=== PATIENT | female | born 1970 | race Caucasian/White ===

== ENCOUNTER → 2019-01-03 | Outpatient (CLI) | payer OTHER ==
[~2019-01-03] MED LIST: AZEL1SPR3 NARES; CHOL50002 PO; CLON0.5T17 PO; COMBAER6 INH; DYMI137S; LASI40TA9 PO; LORA-622 PO; OMEP40CA97 PO; PERCOCET PO; PHEN15CA PO; ULTR5TAB PO
--- NOTE | 2019-01-04 12:24 | REP ---
PET/CT: HISTORY: Solitary pulmonary nodule. COMPARISONS: There is a report of a chest CT study from [facility] dated December 15, 2018. TECHNIQUE: 60 minutes following the intravenous injection of a 9.15 mCi dose of F-18 FDG, three-dimensional PET scintigraphy is acquired from the skull base to the proximal thighs. Triplanar noncontrast CT scanning is acquired through the same anatomic range for attenuation correction, and image registration with scan parameters optimized to minimize radiation exposure to the patient. PET scintigraphy and CT datasets were fused and displayed on a workstation with multiplanar and projection display capability. PET/CT FINDINGS: CT images from today's study demonstrate a 1.9 cm partly solid nodular density in the right lower lobe which is felt to correspond with the outside CT report. This demonstrates mildly hypermetabolic FDG accumulation, maximum standard uptake value is 3.2. There is no other abnormal hypermetabolic uptake in the chest. Head and neck soft tissues are remarkable only for normal variant skeletal muscle uptake. In the abdomen and pelvis, normal hepatic, splenic, gastrointestinal, and genitourinary FDG accumulations seen. No abnormal hypermetabolic uptake is seen in the abdomen or pelvis. The scan is otherwise unremarkable. IMPRESSION: Partly solid 1.9 cm nodule in the right lower lobe shows mildly hypermetabolic uptake. Malignancy cannot be excluded. Suggest histologic sampling. Electronically Signed by Baltazar Lr MD 01/04/2019 04:34 P
== END ==
LOC: M PLARAD 08:09
PROVIDERS: ATTEND Internal Medicine
DX: R91.1 Solitary pulmonary nodule (principal)
CPT/HCPCS: 78815; A9552

== ENCOUNTER → 2019-01-26 | Outpatient (CLI) | payer OTHER ==
--- NOTE | 2019-01-27 06:01 | REP ---
Clinical: Lung cancer. Technique: Axial noncontrast images from the thoracic inlet to the upper abdomen with coronal and sagittal re-formations Comparison: 12/15/2018. Findings: Nodular complex in the right lower lobe measuring approximately 2.3 cm maximal diameter including multiple small soft tissue nodules measuring up to approximately 6 mm each as well as focal area of non solid nodule measuring 1.2 cm and small cystic component measuring approximately 1.3 cm. Remainder of lung eller are clear and without further nodule, consolidation, effusion, or pneumothorax. No significant adenopathy is appreciated. Tracheobronchial tree is patent. Mediastinum demonstrates mild atherosclerotic changes to the thoracic aorta and coronary arteries without aortic aneurysm or cardiomegaly. No pericardial effusion. Surrounding musculoskeletal structures are intact without focal osseous abnormality. Limited upper abdomen demonstrates a low-density right adrenal lesions consistent with benign adrenal adenomas up to 2 cm and evidence of prior cholecystectomy. Impression: 1. Focal complex area in the right lower lobe as described above containing small nodules, cyst, and non solid density remains stable. 2. No further acute mediastinal or pleuroparenchymal process. 3. Right adrenal adenomas. Electronically Signed by Otilio Dominguez MD 01/27/2019 05:53 A
== END ==
LOC: M RAD 13:41
PROVIDERS: ATTEND Internal Medicine Pulmonary Disease
DX: R91.8 Other nonspecific abnormal finding of lung field (principal)

== ENCOUNTER → 2019-02-16 | Outpatient (CLI) | payer OTHER ==
[~2019-02-16] MED LIST changes: +ACETAMINOPHEN 325 MG TAB As Ordered ONE; +LIDOCAINE 1% MDV 20ML VIAL As Ordered ONE
--- NOTE | 2019-02-16 13:39 | REP ---
POSTBIOPSY CHEST: Single film of the chest is performed status post right lung biopsy. There is a small right apical pneumothorax. There are atelectatic changes bilaterally on this expiratory view. The cardiomediastinal silhouette appears unremarkable. IMPRESSION: Small right apical pneumothorax status post right lung biopsy. Followup radiograph will be performed in 2 hours. Electronically Signed by Nelson Alejo MD 02/17/2019 09:24 A
[2019-02-16 14:10] VITALS: BP 116/69
--- NOTE | 2019-02-16 14:19 | REP ---
CHEST, SINGLE VIEW: Single view of the chest is performed status post right lung biopsy. There is again a small right apical pneumothorax. This has remained stable. The remainder of the study is unchanged. Electronically Signed by Nelson Alejo MD 02/21/2019 09:02 A
--- NOTE | 2019-02-17 09:16 | REP ---
CT-GUIDED RIGHT LOWER LOBE LUNG BIOPSY The procedure was performed under the direct supervision of Dr. Aeljo. The patient has a history of a poorly solid 1.9 cm nodule in the right lower lobe which was mildly hypermetabolic on a previous PET scan dated 01/03/2019. The risks and benefits of the procedure were explained to the patient and informed consent was obtained. The right lower lobe lung nodule was localized using CT guidance. The skin was prepped and draped in a sterile fashion. 1% lidocaine was used as a local anesthetic. Using CT guidance 19/20 gauge coaxial needle biopsy system was inserted and advanced into the nodule. Four core biopsy samples were obtained and sent to the lab. The patient did develop a small right pneumothorax. The patient's O2 saturations were 100% on room air. The patient complained of pain at approximately six or seven out of 10. The patient was placed on 2 liters of O2 via nasal cannula. Chest x-ray performed immediately after the procedure demonstrates a small right apical pneumothorax. Chest x-ray performed 2 hours later shows no change in the size of the pneumothorax. The patient's vital signs were stable and her pain had lessened. The patient was then discharged home. Electronically Signed by ABBIE Renteria 02/16/2019 02:53 P Electronically Signed by Nelson Alejo MD 02/17/2019 09:07 A
== END ==
LOC: M IRPRO 10:49
PROVIDERS: ATTEND Internal Medicine Pulmonary Disease
DX: C34.31 Malignant neoplasm of lower lobe, right bronchus or lung (principal)

== ENCOUNTER → 2019-03-02 | Outpatient (CLI) | payer OTHER ==
[~2019-03-02] MED LIST changes: -ACETAMINOPHEN 325 MG TAB As Ordered ONE; -AZEL1SPR3 NARES; -LASI40TA9 PO; -LIDOCAINE 1% MDV 20ML VIAL As Ordered ONE; -OMEP40CA97 PO; -PERCOCET PO; -ULTR5TAB PO
== END ==
LOC: M SMT 08:59
PROVIDERS: ATTEND Internal Medicine Pulmonary Disease
DX: C34.31 Malignant neoplasm of lower lobe, right bronchus or lung (principal)

== ENCOUNTER → 2019-03-16 | Outpatient (CLI) | payer OTHER ==
[~2019-03-16] MED LIST changes: +AZEL1SPR3 NARES; +LASI40TA9 PO; +OMEP40CA97 PO; +PERCOCET PO; +ULTR5TAB PO
[2019-03-16 13:54] LABS: HEMATOCRIT 45.8 % (36.0-47.0); HEMOGLOBIN 14.7 g/dl (12.0-15.5); MEAN CORPUSCULAR HEMOGLOBIN 30.2 pg (27.0-33.0); MEAN CORPUSCULAR HGB CONC 32.1 g/dl (32.0-36.5); PLATELET COUNT, AUTOMATED 238 10^3/uL (150-450); RED BLOOD COUNT 4.87 10^6/uL (4.00-5.40); WHITE BLOOD COUNT 10.5 10^3/uL (4.0-10.0)
[2019-03-16 13:59] LABS: INR 0.98; PROTHROMBIN TIME 12.7 SECONDS (11.8-14.0)
[2019-03-16 14:00] LABS: PARTIAL THROMBOPLASTIN TIME 28.6 SECONDS (25.0-38.4)
[2019-03-16 14:01] LABS: ABG BASE EXCESS -0.9 (-2.0-2.0); ABG HCO3 23.2 MEQ/L (22.0-26.0); ABG O2 SATURATION 94.5 % (95.0-99.0); ABG PARTIAL PRESSURE CO2 36.6 mmHg (35.0-45.0); ABG PARTIAL PRESSURE O2 68.8 mmHg (75.0-100.0); ABG STANDARD HCO3 23.7 MEQ/L (22.0-26.0); ABG TOTAL CO2 24.3 MEQ/L (22.0-29.0); ABG pH (ARTERIAL) 7.419 UNITS (7.350-7.450)
[2019-03-16 14:15] LABS: BLOOD UREA NITROGEN 11 MG/DL (7-18); CALCIUM LEVEL 9.8 MG/DL (8.5-10.1); CARBON DIOXIDE LEVEL 30 MEQ/L (21-32); CHLORIDE LEVEL 106 MEQ/L (98-107); GLOMERULAR FILTRATION RATE > 60.0 (>58); GLUCOSE, FASTING 87 MG/DL (70-100); POTASSIUM SERUM 4.4 MEQ/L (3.5-5.1); SODIUM LEVEL 139 MEQ/L (136-145)
[2019-03-16 14:47] LABS: APPEARANCE, URINE CLEAR (CLEAR); BACTERIA, URINE AUTO NEGATIVE (NEGATIVE); BILIRUBIN, URINE AUTO NEGATIVE (NEGATIVE); BLOOD, URINE BLOOD NEGATIVE (NEGATIVE); COLOR, URINE STRAW (YELLOW); GLUCOSE, URINE (UA) AUTO NEGATIVE (NEGATIVE); KETONE, URINE AUTO NEGATIVE (NEGATIVE); LEUKOCYTE ESTERASE, URINE AUTO NEGATIVE (NEGATIVE); NITRITE, URINE AUTO NEGATIVE (NEGATIVE); PROTEIN, URINE AUTO NEGATIVE (NEGATIVE); RBC, URINE AUTO 1 /HPF (0-3); SPECIFIC GRAVITY URINE AUTO 1.006 (1.002-1.035); SQUAMOUS EPITHELIAL CELL UR AU 0 /HPF (0-6); UROBILINOGEN, URINE AUTO 0.2 mg/dL (0.0-2.0); WBC, URINE AUTO 0 /HPF (0-3)
--- NOTE | 2019-03-16 14:48 | REP ---
PA and lateral chest: Comparisons are the outside PA and lateral chest of 01/28/[address] dated 01/26/2019. By CT the patient has a known right lower lobe lung nodular lesion. This right lower lobe lung nodule is not identified on PA and lateral plain films today or on the prior plain film study. There are abdominal right upper quadrant surgical clips, unchanged. The lung eller are clear. The cardiac size is normal. The ami, mediastinum, and skeletal structures are unremarkable. Impression: Negative PA and lateral chest. There is no interval change from the prior plain film study. Electronically Signed by Nelson Romero MD 03/16/2019 02:39 P
--- NOTE | 2019-03-16 15:34 | ECGEPIP ---
[facility] Test Date: 2019-03-16 Pat Name: LUZMA BATISTA Department: Room: - Gender: Female Acquisition Advisor: ELISABETH : [id number] Requested By: Adriel Sierra Order Number: [id number] Reading MD: Jesus Cox Measurements Intervals [place] Rate: 70 P: 11 IA: 162 QRS: 28 QRSD: 85 T: 32 QT: 387 QTc: 419 Interpretive Statements Normal sinus rhythm Normal EKG Comparison tracing not on file Electronically Signed on 03-16-2019 15:34:20 EST by Jesus Cox
== END ==
LOC: M ADMPAT 13:12
PROVIDERS: ATTEND Thoracic Surgery (Cardiothoracic Vascular Surgery)
DX: Z01.818 Encounter for other preprocedural examination (principal); C34.91 Malignant neoplasm of unspecified part of right bronchus or lung

== ENCOUNTER 2019-03-23 06:53 | Inpatient (IN) | payer OTHER ==
[2019-03-23] VITALS (18 sets, daily range): BP systolic 94–126; BP diastolic 43–62
[~2019-03-23] VITALS: Ht 162.6 cm; Wt 115.2 kg
[~2019-03-23 06:53] MED LIST changes: -LASI40TA9 PO; +LR 1,000 ML IV ONE; +MUPIROCIN 2% OINT 22 GM TUBE TOP ONE; -PERCOCET PO; +VANCOMYCIN HCL 1,000 MG, VIAL MATE ADAPTER 1 EACH in D5W 250 ML IV ONE
[2019-03-23] MEDS ORDERED: fentaNYL 100 MCG/2 ML INJECTION (J3010) As Ordered ONE ×3 (07:50→14:02)
[2019-03-23] MEDS ORDERED: MIDAZOLAM INJ 2 MG/2 ML VIAL (J2250) As Ordered ONE ×2 (07:50→08:09)
[2019-03-23] MEDS ORDERED: fentaNYL 250 MCG/5 ML INJECTION (J3010) As Ordered ONE (08:08)
[2019-03-23] MEDS ORDERED: ONDANSETRON 4MG/2ML VIAL (J2405) As Ordered ONE (08:09)
[2019-03-23] MEDS ORDERED: ROCURONIUM BROMIDE 50 MG/5 ML VIAL As Ordered ONE ×3 (08:09→13:19)
[2019-03-23] MEDS ORDERED: LIDOCAINE 2% INJ 100 MG/5 ML SDV (FOR ANES.) As Ordered ONE (08:09)
[2019-03-23] MEDS ORDERED: PROPOFOL 200 MG/20 ML VIAL As Ordered ONE (08:09)
[2019-03-23] MEDS ORDERED: dexameTHASONE 4 MG/ML 1ML VIAL (J1100) As Ordered ONE (08:09)
[2019-03-23] MEDS ORDERED: fentaNYL 100 MCG/2 ML INJECTION (J3010) IV ONE (08:30)
[2019-03-23] MEDS ORDERED: CETACAINE SPRAY 5GM As Ordered ONE (08:32)
[2019-03-23] MEDS ORDERED: BUPIVACAINE HCL 0.5% 30 ML VIAL As Ordered ONE (08:33)
[2019-03-23] MEDS ORDERED: BUPIVACAINE LIPOSOME/PF 1.3% 20ML VIAL (13.3MG/ML)(EXPAREL)(C9290 PER1MG) As Ordered ONE (08:33)
[2019-03-23] MEDS ORDERED: MIDAZOLAM INJ 2 MG/2 ML VIAL (J2250) IV ONE (08:45)
[2019-03-23] MEDS ORDERED: WALLBOXKEY XX PRN (09:00)
[2019-03-23] MEDS ORDERED: ONDANSETRON 4MG/2ML VIAL (J2405) IV PRN ×3 (09:00→15:00)
[2019-03-23] MEDS ORDERED: diphenhydrAMINE INJ 50MG/ML VIAL (J1200) IV PRN (09:00)
[2019-03-23] MEDS ORDERED: EPIDURAL/PCA KEYS XX PRN (09:00)
[2019-03-23] MEDS ORDERED: METOCLOPRAMIDE INJ 10MG/2ML VIAL (J2765) IV PRN (09:00)
[2019-03-23] MEDS ORDERED: NALOXONE INJ 0.4 MG/1 ML VIAL (J2310) IV PRN (09:00)
[2019-03-23] MEDS ORDERED: PHENYLephrine HCL 500 MCG/5 ML (100MCG/ML) SYRINGE (J2370) As Ordered ONE ×2 (12:41→14:29)
[2019-03-23] MEDS ORDERED: DESFLURANE 240 ML INHALANT As Ordered ONE (13:13)
[2019-03-23] MEDS ORDERED: SUGAMMADEX SODIUM 500 MG/5 ML VIAL (BRIDION) As Ordered ONE (13:20)
[2019-03-23] MEDS ORDERED: ePHEDrine SULFATE 25 MG/5 ML(5MG/ML) SYRINGE As Ordered ONE (13:53)
[2019-03-23] MEDS ORDERED: KETOROLAC 60 MG/2 ML VIAL (J1885) As Ordered ONE (13:55)
[2019-03-23] MEDS ORDERED: LEVALBUTEROL 1.25 MG/0.5 ML CONCENTRATE NEB NEB PRN (14:15)
[2019-03-23] MEDS ORDERED: BISACODYL 10 MG SUPP PR PRN (14:15)
[2019-03-23] MEDS ORDERED: ACETAMINOPHEN TAB 650MG DOSE (2X325MG) PO PRN (14:15)
[2019-03-23] MEDS: FENTANYL/BUPIVACAINE/NACL BAG 250 ML EPIDURAL SCH (14:25)
[2019-03-23] MEDS ORDERED: PHENYLEPHRINE INJ 10MG/ML VIAL (J2370) As Ordered ONE (14:27)
[2019-03-23 14:51] LABS: ABG BASE EXCESS -4.6 (-2.0-2.0); ABG HCO3 20.4 MEQ/L (22.0-26.0); ABG O2 SATURATION 97.7 % (95.0-99.0); ABG PARTIAL PRESSURE CO2 37.6 mmHg (35.0-45.0); ABG PARTIAL PRESSURE O2 101.4 mmHg (75.0-100.0); ABG STANDARD HCO3 20.7 MEQ/L (22.0-26.0); ABG TOTAL CO2 21.6 MEQ/L (22.0-29.0); ABG pH (ARTERIAL) 7.353 UNITS (7.350-7.450)
[2019-03-23 15:00] LABS: BASO # 0.1 10^3/uL (0.0-0.2); BASO % 0.3 % (0.0-1.0); EOS % 0.2 % (0.0-3.0); HEMATOCRIT 37.7 % (36.0-47.0); HEMOGLOBIN 12.4 g/dl (12.0-15.5); LYMPH # 0.7 10^3/uL (1.5-5.0); LYMPH % 3.6 % (24.0-44.0); MEAN CORPUSCULAR HEMOGLOBIN 30.5 pg (27.0-33.0); MEAN CORPUSCULAR HGB CONC 32.9 g/dl (32.0-36.5); MEAN CORPUSCULAR VOLUME 92.9 fl (80.0-96.0); MONO # 0.5 10^3/uL (0.0-0.8); MONO % 2.4 % (0.0-5.0); NEUTROPHILS # 18.5 10^3/uL (1.5-8.5); PLATELET COUNT, AUTOMATED 195 10^3/uL (150-450); RED BLOOD COUNT 4.06 10^6/uL (4.00-5.40); WHITE BLOOD COUNT 19.8 10^3/uL (4.0-10.0)
[2019-03-23] MEDS ORDERED: LR 1,000 ML IV SCH (15:00)
[2019-03-23] MEDS ORDERED: HYDROMORPHONE HCL 0.5 MG/ 0.5 ML SYRINGE (J1170 PER 1) IV PRN (15:00)
[2019-03-23] MEDS ORDERED: fentaNYL 100 MCG/2 ML INJECTION (J3010) IV PRN (15:00)
[2019-03-23] MEDS ORDERED: PHENYLEPHRINE HCL INJ 10 MG in D5W 100 ML IV ONE (15:00)
--- NOTE | 2019-03-23 15:00 | REP ---
Single view chest: 03/23/2019. Indication: Postoperative assessment. Status post right-sided lobectomy. Comparison: 03/16/2019. Findings: Postoperative sequelae are present with two right-sided chest tubes. There is a small right apical pneumothorax. No significant pleural effusion is present. Expected diminished lung volume on the right is noted. The left lung is clear. Impression: Right-sided chest tubes with a small apical pneumothorax. Electronically Signed by Syde Amado DO 03/23/2019 02:52 P
[2019-03-23 15:17] LABS: BLOOD UREA NITROGEN 14 MG/DL (7-18); CARBON DIOXIDE LEVEL 24 MEQ/L (21-32); CHLORIDE LEVEL 110 MEQ/L (98-107); CREATININE FOR GFR 0.88 MG/DL (0.55-1.30); GLOMERULAR FILTRATION RATE > 60.0 (>58); GLUCOSE, FASTING 142 MG/DL (70-100); POTASSIUM SERUM 4.2 MEQ/L (3.5-5.1); SODIUM LEVEL 142 MEQ/L (136-145)
[2019-03-23 15:18] LABS: INR 1.15; PROTHROMBIN TIME 14.4 SECONDS (11.8-14.0)
[2019-03-23] MEDS ORDERED: KCL 20MEQ IN D5/NS 1000ML 1,000 ML IV SCH (15:30)
[2019-03-23] MEDS ORDERED: VANCOMYCIN HCL 1,000 MG, VIAL MATE ADAPTER 1 EACH in D5W 250 ML IV SCH (16:00)
[2019-03-23] MEDS: MOM 30ML SUSPENSION UDC PO SCH (16:55)
[2019-03-23] MEDS: LEVALBUTEROL 1.25 MG/0.5 ML CONCENTRATE NEB NEB SCH (19:38)
[2019-03-23] MEDS: KETOROLAC 30 MG/ML VIAL (J1885) IV SCH (20:20)
[2019-03-23] MEDS: HEPARIN SOD (PORCINE) 5000 UNITS/ML VIAL SC SCH (20:26)
[2019-03-23] MEDS: DOCUSATE SODIUM 100 MG CAP PO SCH (21:00)
[2019-03-24] VITALS (22 sets, daily range): BP systolic 92–135; BP diastolic 47–69
[2019-03-24] MEDS: LEVALBUTEROL 1.25 MG/0.5 ML CONCENTRATE NEB NEB SCH ×5 (01:24→23:54)
[2019-03-24] MEDS: KETOROLAC 30 MG/ML VIAL (J1885) IV SCH ×4 (01:36→20:05)
[2019-03-24] MEDS: VANCOMYCIN HCL 1,000 MG, VIAL MATE ADAPTER 1 EACH in D5W 250 ML IV SCH ×3 (05:20→20:05)
[2019-03-24 05:55] LABS: ABG BASE EXCESS -3.5 (-2.0-2.0); ABG HCO3 21.7 MEQ/L (22.0-26.0); ABG O2 SATURATION 96.3 % (95.0-99.0); ABG PARTIAL PRESSURE CO2 39.6 mmHg (35.0-45.0); ABG PARTIAL PRESSURE O2 81.8 mmHg (75.0-100.0); ABG STANDARD HCO3 21.6 MEQ/L (22.0-26.0); ABG TOTAL CO2 22.9 MEQ/L (22.0-29.0); ABG pH (ARTERIAL) 7.357 UNITS (7.350-7.450)
[2019-03-24 06:15] LABS: BASO % 0.1 % (0.0-1.0); HEMATOCRIT 34.2 % (36.0-47.0); HEMOGLOBIN 11.1 g/dl (12.0-15.5); LYMPH # 1.4 10^3/uL (1.5-5.0); LYMPH % 8.3 % (24.0-44.0); MEAN CORPUSCULAR HEMOGLOBIN 30.6 pg (27.0-33.0); MEAN CORPUSCULAR HGB CONC 32.5 g/dl (32.0-36.5); MEAN CORPUSCULAR VOLUME 94.2 fl (80.0-96.0); MONO # 1.7 10^3/uL (0.0-0.8); MONO % 10.2 % (0.0-5.0); NEUTROPHILS # 13.7 10^3/uL (1.5-8.5); NEUTROPHILS % 80.9 % (36.0-66.0); PLATELET COUNT, AUTOMATED 184 10^3/uL (150-450); RED BLOOD COUNT 3.63 10^6/uL (4.00-5.40); WHITE BLOOD COUNT 16.9 10^3/uL (4.0-10.0)
[2019-03-24 06:40] LABS: BLOOD UREA NITROGEN 9 MG/DL (7-18); CALCIUM LEVEL 7.9 MG/DL (8.5-10.1); CARBON DIOXIDE LEVEL 26 MEQ/L (21-32); CHLORIDE LEVEL 106 MEQ/L (98-107); CREATININE FOR GFR 0.75 MG/DL (0.55-1.30); GLOMERULAR FILTRATION RATE > 60.0 (>58); GLUCOSE, FASTING 143 MG/DL (70-100); POTASSIUM SERUM 4.3 MEQ/L (3.5-5.1); SODIUM LEVEL 136 MEQ/L (136-145)
[2019-03-24] MEDS: HEPARIN SOD (PORCINE) 5000 UNITS/ML VIAL SC SCH ×2 (09:00→20:06)
[2019-03-24] MEDS: DOCUSATE SODIUM 100 MG CAP PO SCH ×2 (09:00→20:29)
--- NOTE | 2019-03-24 09:12 | RO ---
DATE OF PROCEDURE: 03/23/2019 PREPROCEDURE DIAGNOSIS: Right lower lobe adenocarcinoma. POSTPROCEDURE DIAGNOSIS: Right lower lobe adenocarcinoma. PROCEDURE: Right lower lobectomy, mediastinal lymphadenectomy, bronchoscopy, and five-level rib block. SURGEON: Adriel Rojas MD ASSISTANTS: Dr. Chakraborty and Dr. Barclay. ANESTHESIA: General anesthesia. FINDINGS: The junction between the main lower lobe pulmonary artery and the apical basilar segmental pulmonary artery tore with considerable blood loss. This was eventually controlled by getting proximal control with a clamp and oversewing the tear. Patient reached a brief teresa blood pressure in 85 systolic. The bronchoscopy revealed a normal branching tracheobronchial tree with relatively few secretions. There were no endobronchial lesions. The major fissure was complete, and the minor fissure was incomplete. DESCRIPTION OF PROCEDURE: Under satisfactory general anesthesia with single-lumen tube endotracheal intubation, the bronchoscope was passed into the tracheobronchial tree. Each segment and subsegmental bronchopulmonary segment was inspected, and there were no endobronchial lesions. There were only scant secretions. Patient then underwent double-lumen endotracheal intubation and Bryant catheter placement. She was turned into the left lateral decubitus position and sterilely prepped and draped in the usual fashion. An initial small incision was made with division of the latissimus dorsi, sparing the serratus anterior. The chest was entered at the 5th intercostal space. The confluence of fissures was just beneath the incision. The pulmonary artery could clearly be seen in the completed fissure. It was dissected and the two branches, one to the apical basilar segmental branch and the main lower pulmonary artery branch, were surrounded with vessel loops. The main lower lobe pulmonary branch artery was then stapled with a vascular stapler without difficulty. The stapler was then placed across the apical basilar segmental artery, which then started to profusely bleed. The stapler was removed, and digital control was obtained and finally a clamp was placed across the lower lobe pulmonary vessels. This then allowed us to visualize the hole, which was at the bifurcation of the apical basilar segment and the already stapled lower lobe artery. This was then oversewn with running #5-0 Prolene suture. Clamp was removed, and additional two stitches were placed. During this time, both Dr. Barclay and Dr. Chakraborty responded to a call I made for their assistance. Dr. Barclay initially responded and helped me get initial control of the pulmonary artery with Dr. Chakraborty remaining with me through the rest of the procedure, providing exposure for vessels and assistance with the caren dissection. The inferior pulmonary ligament was then released, and the inferior pulmonary vein was visualized in its inferior portion. The phrenic nerve was identified and assiduously preserved. The remainder of the lower lobe pulmonary vein was then surrounded with a vessel loop and stapled with a vascular stapler. This then left the bronchus. Prior to doing so, the small portion of the major fissure was completed by use of an Pilger stapler anteriorly. Bronchus was then isolated and stapled across with a TA 30 4.8 stapler. Stump was amputated, and the specimen was delivered to pathology for examination. Attention was then turned to the mediastinum, where an incision was made over the mediastinum between the trachea and the superior vena cava. The azygos vein was dissected out and stapled so as to expose the azygos nodes. Starting from the azygos nodes going more distally, the nodes were completely swept away up to the subclavian vein. These were sent in toto for pathological examination with one additional node labeled the azygos node, which had been removed first on top of the pulmonary artery and beneath the divided azygos vein. Two chest tubes were then placed, and the bronchus was checked for leak with 30 cm of water pressure. Bronchus was found to be intact. Tisseel was placed within the mediastinal dissection plane and along the staple lines at the vessels. Two chest tubes were placed, one anterior straight and one posterior curved, both 28. Five-level rib block was undertaken with a mixture of Marcaine and Exparel. During the bleeding episode, the incision had to be extended and the serratus anterior divided. Ribs were reapproximated by use of six #1 figure-of-8 Prolene sutures, and the extrathoracic muscles including the serratus anterior and latissimus dorsi were closed with running #0 Vicryl suture. Each muscle layer was injected with Exparel/Marcaine mixture. Subcutaneous tissue was closed with running #3-0 Vicryl suture, and the skin was closed with running #3-0 Monocryl subcuticular suture. Patient tolerated the procedure well and left the operating room extubated for the recovery room. VIKTORIA
[2019-03-24] MEDS: FENTANYL/BUPIVACAINE/NACL BAG 250 ML EPIDURAL SCH (09:14)
--- NOTE | 2019-03-24 09:39 | REP ---
Two-view chest: 03/24/2019. Indication: Postoperative assessment. Comparison: Yesterday. Double right-sided chest tubes are redemonstrated. Tiny residual right apical pneumothorax persists. Slightly more pronounced calcifications next to the chest tubes are present. There is no pleural effusion. The left lung is clear. Impression: Minimal residual right apical pneumothorax. Right-sided chest tubes are unchanged in position. Electronically Signed by Syed Amado DO 03/24/2019 09:31 A
[2019-03-24] MEDS: PANTOPRAZOLE 40MG TAB (PROTONIX) PO SCH (09:55)
[2019-03-24] MEDS: MOM 30ML SUSPENSION UDC PO SCH (09:56)
[2019-03-24] MEDS ORDERED: BUPIVACAINE HCL 0.25% 10 ML VIAL As Ordered ONE (10:05)
--- NOTE | 2019-03-24 10:29 | IPN ---
DATE: 03/24/2019 This is now the first postoperative day for Mrs. Sebastian. She has had a stable night of surgery. Her pain sitting up is about a 7 out of 10, and I am asking anesthesia to reevaluate the epidural. She is now at 14 mL an hour. She is no longer requiring phenylephrine, and my suspicion is that the epidural has been displaced. Her pain is helped with the Toradol administrations. Her vital signs show a maximum temperature (Tmax) of 97.8 with a heart rate that ranges between 89 and 75 in a sinus rhythm, respiratory rate of 17-15 without the use of accessory muscles, who is 100-96% saturated on 2 liters nasal cannula, and has blood pressures ranging between 112/49 to 127/51. Her intake and output for the past 24 hours has been recorded as 3845 in and 3228 out for a positivity of 600 mL. She has put out 343 mL from the chest tube. There is no air leak at my visit today; however, the nursing staff said she has had a small air leak earlier this morning. Her weight is pending today. On physical examination, she has bilateral rales and rhonchi on either side, the right more than the left. Percussion note is full to the diaphragm. Cardiac exam is without murmurs, clicks, gallops, or rubs. I cannot feel her point of maximum impulse (PMI) through her obesity. Abdomen is soft, nontender. Bowel sounds are present but hypoactive. Extremities show trace pretibial edema. No calf tenderness. No differential swelling of the upper extremities. Skin is warm, dry, and perfused without cyanosis or mottling, including that of the nail beds and knees. Neck is supple. There is no jugular venous distention. No subcutaneous emphysema. Trachea is midline. Mouth shows her mucous membranes to be pink and moist. Lips and commissures without lesions. There is no thrush. Eyes show her pupils to be equal and reactive. Extraocular motions are intact. Sclerae anicteric. Neurologic shows II-XII intact, along with gross motor and gross sensation intact. Gait is not tested. Psychiatric shows her to be awake and alert and oriented times three with appropriate mood and affect and conversational. Her white count today is 16.9 with a hemoglobin/hematocrit of 11.1 and 34.2, compared to 12.4 and 37.7, secondary to hemodilution. Platelet count is 184. Differential shows 80% neutrophils, 8% lymphocytes, and 10% monocytes. There are no immature forms. No toxic granulations. Her electrolytes are normal. BUN/creatinine of 9 and 0.75, glucose of 143, and calcium 7.9. Blood gas today shows a pH of 7.35, pCO2 of 39, a pO2 of 81 with a base excess of -3.5. PT/INR yesterday was 14.4 and 1.15 in the recovery room. Her chest x-ray today shows her lung fully expanded to the chest wall. There is obligate volume loss from the lobectomy. There is minimal subcutaneous emphysema. There is a slight mediastinal shift to the right. Costophrenic angles are sharp. I see no posterior infiltrates on the lateral film. Chest tubes are in good place. IMPRESSION: 1. Postoperative day #1, status post right lower lobectomy. 2. Acute surgical blood loss, replaced. 3. Adenocarcinoma, clinical stage I, final pathology pending. 4. Gastroesophageal reflux disease. 5. Obesity. 6. Prior tobacco abuse. PLAN AND DISCUSSION: As noted above, I am going to ask anesthesia to reevaluate the epidural. I am very pleased with her postoperative course so far. At the time of my examination, she has no air leak, and she is putting out fairly minimally, for this stage of her recovery, from the chest tube. I will transfer her to the progressive care unit (PCU) today.
[2019-03-24] MEDS ORDERED: ONDANSETRON 4MG/2ML VIAL (J2405) IV PRN (11:00)
[2019-03-24] MEDS ORDERED: FENTANYL/BUPIVACAINE BAG 250 ML EPIDURAL SCH (11:00)
[2019-03-24] MEDS ORDERED: EPIDURAL/PCA KEYS XX PRN (11:00)
[2019-03-24] MEDS ORDERED: WALLBOXKEY XX PRN (11:00)
[2019-03-24] MEDS ORDERED: NALOXONE INJ 0.4 MG/1 ML VIAL (J2310) IV PRN (11:00)
[2019-03-24] MEDS ORDERED: METOCLOPRAMIDE INJ 10MG/2ML VIAL (J2765) IV PRN (11:00)
[2019-03-24] MEDS: BUPIVACAINE/NACL BAG 250 ML EPIDURAL SCH (11:24)
[2019-03-24] MEDS: PERCOCET 5MG/325MG TAB PO PRN ×2 (13:50→20:06)
[2019-03-24] MEDS ORDERED: INFLUENZA QUADRIVALENT PF VACCINE 0.5ML SYRINGE (90686) IM PRN (23:45)
[2019-03-25] VITALS (14 sets, daily range): BP systolic 103–143; BP diastolic 51–65; O2SAT 90–100
[2019-03-25] MEDS: KETOROLAC 30 MG/ML VIAL (J1885) IV SCH ×4 (01:16→20:32)
[2019-03-25] MEDS: PERCOCET 5MG/325MG TAB PO PRN ×5 (01:18→20:33)
[2019-03-25] MEDS: VANCOMYCIN HCL 1,000 MG, VIAL MATE ADAPTER 1 EACH in D5W 250 ML IV SCH ×3 (03:43→20:32)
[2019-03-25 05:33] LABS: BASO # 0.1 10^3/uL (0.0-0.2); BASO % 0.4 % (0.0-1.0); EOS # 0.3 10^3/uL (0.0-0.5); HEMATOCRIT 33.5 % (36.0-47.0); HEMOGLOBIN 10.6 g/dl (12.0-15.5); LYMPH # 2.7 10^3/uL (1.5-5.0); LYMPH % 17.4 % (24.0-44.0); MEAN CORPUSCULAR HEMOGLOBIN 29.9 pg (27.0-33.0); MEAN CORPUSCULAR HGB CONC 31.6 g/dl (32.0-36.5); MEAN CORPUSCULAR VOLUME 94.4 fl (80.0-96.0); MONO # 1.5 10^3/uL (0.0-0.8); MONO % 9.7 % (0.0-5.0); NEUTROPHILS # 10.7 10^3/uL (1.5-8.5); NEUTROPHILS % 69.8 % (36.0-66.0); PLATELET COUNT, AUTOMATED 170 10^3/uL (150-450); RED BLOOD COUNT 3.55 10^6/uL (4.00-5.40); WHITE BLOOD COUNT 15.4 10^3/uL (4.0-10.0)
[2019-03-25 06:00] LABS: BLOOD UREA NITROGEN 12 MG/DL (7-18); CALCIUM LEVEL 8.5 MG/DL (8.5-10.1); CARBON DIOXIDE LEVEL 26 MEQ/L (21-32); CHLORIDE LEVEL 104 MEQ/L (98-107); CREATININE FOR GFR 0.84 MG/DL (0.55-1.30); GLOMERULAR FILTRATION RATE > 60.0 (>58); GLUCOSE, FASTING 132 MG/DL (70-100); POTASSIUM SERUM 4.1 MEQ/L (3.5-5.1); SODIUM LEVEL 136 MEQ/L (136-145)
[2019-03-25] MEDS: BUPIVACAINE/NACL BAG 250 ML EPIDURAL SCH (07:08)
[2019-03-25] MEDS: LEVALBUTEROL 1.25 MG/0.5 ML CONCENTRATE NEB NEB SCH ×3 (07:34→20:56)
--- NOTE | 2019-03-25 08:35 | REP ---
Chest x-ray: Two views. History: Status post right lower lobectomy. Comparison study: March 24, 2019. Findings: EKG monitoring electrodes are seen. An epidural catheter is noted overlying the thoracic spine. There are two right-sided chest tubes again noted one anterior and the other posterior. There is discoid atelectasis in the right base. Postoperative volume loss is seen in the right hemithorax post right lower lobectomy. No pleural effusion is visible. There is a tiny right apical pneumothorax cavity unchanged. There are clips in right upper quadrant of the abdomen. Heart size is normal. Minimal plate-like atelectasis is suspected in the left base. Impression: Bibasilar plate-like atelectasis. Tiny amount of apical pleural air on the right. Right chest tubes in place. Electronically Signed by Baltazar Lr MD 03/25/2019 08:28 A
[2019-03-25] MEDS: MOM 30ML SUSPENSION UDC PO SCH (08:48)
[2019-03-25] MEDS: DOCUSATE SODIUM 100 MG CAP PO SCH ×2 (08:48→20:32)
[2019-03-25] MEDS: HEPARIN SOD (PORCINE) 5000 UNITS/ML VIAL SC SCH ×2 (08:49→20:32)
[2019-03-25] MEDS: PANTOPRAZOLE 40MG TAB (PROTONIX) PO SCH (08:49)
--- NOTE | 2019-03-25 09:50 | IPN ---
DATE OF SERVICE: 03/25/2019 This is now the second postoperative day for Mrs. Sebastian. Her pain is being much better controlled with the epidural after anesthesia re-assessed the epidural and changed medication and supplemented her with oral narcotic control. Her vital signs show T-max of 99.0, heart rate of 81 to 120 in sinus rhythm, respiratory rate of 16 to 20 without the use of accessory muscles, who is 96% saturated on 2 liters nasal cannula and has blood pressures ranging between 143/66 to 103/51. Her intake and output over the past 24 hours has been recorded as 2983 in and 2796 out for a positivity of 187 mL. Her chest tube has put out 421 mL, there is no air leak. Weight today is 112.9 kg compared to 105.7 kg yesterday. On physical examination, her lungs show nearly normal vesicular sounds with some inspiratory and expiratory rhonchi on the right side. Percussion notes are full to the diaphragm. Cardiac exam is without murmurs, clicks, gallops or rubs. I cannot feel her PMI. S1 and S2 are normal. Abdomen is soft, nontender, bowel sounds are positive. There is no CVA tenderness. Extremities show trace to 1+ pretibial edema. No calf tenderness. No differential swelling of the upper extremities. Skin is warm, dry and perfused without cyanosis or mottling including that of the nail beds and knees. Neck is supple. There is no jugular venous distention. No subcutaneous emphysema. Trachea is midline. Mouth shows her mucous membranes to be pink and moist. Lips and commissures are without lesions. No thrush. Eyes show her pupils to be equal and reactive. Extraocular motor intact. Sclera anicteric. Neuro shows II through XII intact with gross motor and gross sensation intact. Gait is not tested. Psychiatric shows her to be awake and alert, oriented times three with appropriate mood and affect and conversational. Her white count today is 15.4 with hemoglobin and hematocrit of 10.6 and 33.5 slightly down from 11.1 and 34.2 yesterday. Platelet count is 170. Differential shows 69% neutrophils, 17% lymphocytes, 9% monocytes. No immature forms. No toxic granulations. Her electrolytes are normal with BUN and creatinine of 12 and 0.84. Glucose 132 and calcium of 8.5. She remains on Toradol. Her chest x-ray shows her lung fully expanded to the chest wall. Costophrenic angles are sharp . I see no infiltrates on the lateral film. There is a small apical air space on the cupula on the right side. Chest tube is in good place. IMPRESSION: 1. Postoperative day #2 status post right lower lobectomy. 2. Adenocarcinoma, clinical stage I, final pathology pending. 3. Gastroesophageal reflux disease. 4. Acute surgical blood loss replaced. 5. Obesity. 6. Prior tobacco abuse. PLAN AND DISCUSSION: I will discontinue her chest tube suction today and put her to water seal. I will also diurese her today with Lasix. I am very gratified by her progress. Final pathology will not be back until Wednesday or Wednesday. VIKTORIA
[2019-03-25] MEDS ORDERED: FUROSEMIDE 40 MG/4 ML VIAL (J1940) IV ONE (10:00)
[2019-03-26] VITALS (11 sets, daily range): BP systolic 97–123; BP diastolic 51–59; O2SAT 93–99
[2019-03-26] MEDS: LEVALBUTEROL 1.25 MG/0.5 ML CONCENTRATE NEB NEB SCH ×4 (00:15→19:28)
[2019-03-26] MEDS: KETOROLAC 30 MG/ML VIAL (J1885) IV SCH ×4 (01:10→20:28)
[2019-03-26] MEDS: PERCOCET 5MG/325MG TAB PO PRN ×5 (01:10→23:58)
[2019-03-26] MEDS: BUPIVACAINE/NACL BAG 250 ML EPIDURAL SCH ×2 (03:48→23:57)
[2019-03-26] MEDS: VANCOMYCIN HCL 1,000 MG, VIAL MATE ADAPTER 1 EACH in D5W 250 ML IV SCH ×2 (04:55→11:01)
[2019-03-26 05:17] LABS: BASO # 0.1 10^3/uL (0.0-0.2); BASO % 0.3 % (0.0-1.0); EOS # 0.5 10^3/uL (0.0-0.5); EOS % 2.9 % (0.0-3.0); HEMATOCRIT 33.2 % (36.0-47.0); HEMOGLOBIN 10.4 g/dl (12.0-15.5); LYMPH # 1.8 10^3/uL (1.5-5.0); LYMPH % 11.6 % (24.0-44.0); MEAN CORPUSCULAR HEMOGLOBIN 30.3 pg (27.0-33.0); MEAN CORPUSCULAR HGB CONC 31.3 g/dl (32.0-36.5); MEAN CORPUSCULAR VOLUME 96.8 fl (80.0-96.0); MONO # 1.3 10^3/uL (0.0-0.8); MONO % 8.2 % (0.0-5.0); NEUTROPHILS % 76.3 % (36.0-66.0); PLATELET COUNT, AUTOMATED 178 10^3/uL (150-450); RED BLOOD COUNT 3.43 10^6/uL (4.00-5.40); WHITE BLOOD COUNT 15.8 10^3/uL (4.0-10.0)
[2019-03-26 05:50] LABS: BLOOD UREA NITROGEN 19 MG/DL (7-18); CALCIUM LEVEL 7.8 MG/DL (8.5-10.1); CARBON DIOXIDE LEVEL 29 MEQ/L (21-32); CHLORIDE LEVEL 103 MEQ/L (98-107); CREATININE FOR GFR 0.98 MG/DL (0.55-1.30); GLOMERULAR FILTRATION RATE > 60.0 (>58); GLUCOSE, FASTING 120 MG/DL (70-100); POTASSIUM SERUM 4.4 MEQ/L (3.5-5.1); SODIUM LEVEL 139 MEQ/L (136-145)
--- NOTE | 2019-03-26 08:21 | REP ---
Chest x-ray: Two views. History: Status post right lobectomy. Comparison chest x-ray: March 25, 2019. Findings: Two right chest tubes and an epidural catheter are again seen. There is some elevation of the right hemidiaphragm post right lower lobectomy. A small stable apical air collection is seen in the pleural space on the right. Left lung remains clear. No new abnormality. Electronically Signed by Baltazar Lr MD 03/26/2019 08:12 A
[2019-03-26] MEDS: DOCUSATE SODIUM 100 MG CAP PO SCH ×2 (08:37→20:28)
[2019-03-26] MEDS: PANTOPRAZOLE 40MG TAB (PROTONIX) PO SCH (08:37)
[2019-03-26] MEDS: HEPARIN SOD (PORCINE) 5000 UNITS/ML VIAL SC SCH ×2 (08:37→20:28)
[2019-03-26] MEDS: MOM 30ML SUSPENSION UDC PO SCH (08:37)
[2019-03-26] MEDS ORDERED: MORPHINE 4 MG/ML 1ML VIAL/SYRINGE (J2270) IV PRN (10:00)
[2019-03-26] MEDS ORDERED: FUROSEMIDE 40 MG/4 ML VIAL (J1940) IV ONE (10:45)
--- NOTE | 2019-03-26 12:05 | IPN ---
DATE OF SERVICE: 03/26/2019 Ms. Sebastian had increased pain today. Dr. Tejada of anesthesia came by to reevaluate her. Her pain is much better this morning when I see her after 4 mg bolus of morphine. Her vital signs show a T-max of 98.6 with a heart rate that ranges between 92-108 in sinus rhythm and respiratory rate of 14-22 without the use of accessory muscles who is 93-100% saturated on 2 liters nasal cannula. Her blood pressure ranges between 114/56 to 97/54. Her intake and output for the past 24 hours have been recorded as 2592 in and 2452 out for a positivity of 140 mL. She has put 370 mL out of the chest tube and there is no air leak. Her weight is 112.2 kg today compared to 112.9 kg yesterday and 105.7 kg preoperatively. On physical examination, she has bilateral inspiratory and expiratory rhonchi and rales throughout both lungs. Percussion note is full to the diaphragm. Cardiac exam is without murmurs, clicks, gallops or rubs. I cannot feel her PMI. S1 and S2 are normal. Abdomen is tympanic, slightly distended. Bowel sounds are positive. There is no hepatomegaly that I can feel through her obesity. Extremities show trace pretibial edema. No calf tenderness. No differential swelling of the upper extremities. Skin is warm, dry and perfused without cyanosis or mottling including that of the nail beds and knees. Neck is supple. There is no jugular venous distention. No subcutaneous emphysema. Trachea is midline. Mouth shows her mucous membranes to be pink and moist. Lips and commissures are without lesions. No thrush. Eyes show her pupils to be equal and reactive. Extraocular motor intact. Sclera anicteric. Neuro shows II through XII intact with gross motor and gross sensation intact. Gait is not tested. Psychiatric shows her to be awake and alert, oriented times three with appropriate mood and affect and conversational. Her white count today is 15.8 slightly up from 15.4 yesterday. Hemoglobin and hematocrit are 10.4 and 33.2 essentially unchanged from yesterday with platelet count of 178 and stable. Differential shows 76% neutrophils, 11% lymphocytes, 8% monocytes. There are no immature forms. No toxic granulations. Her electrolytes are normal with BUN and creatinine of 19 and 0.98 up from 12 and 0.84 after Lasix yesterday. Glucose is 120 with a calcium of 7.8. Her chest x-ray shows the lung fully expanded to the chest wall. There is a small apical air space in the cupula of the right lung. Costophrenic angles are sharp. I see no posterior infiltrates on the lateral film. She has obligate volume loss from the lobectomy on the right side with a slight mediastinal shift to the right side. IMPRESSION: 1. Postoperative day #3 status post right lower lobectomy. 2. Adenocarcinoma clinical stage I, final pathology pending. 3. Gastroesophageal reflux disease. 4. Acute surgical blood loss, replaced. 5 Obesity. 6. Prior tobacco abuse. PLAN AND DISCUSSION: I will again diurese her today with 40 mg of Lasix. I am grateful that there is no air leak. She is essentially doing very well and has had a benign postoperative course so far. We will continue with lung expansion therapy.
[2019-03-27] VITALS (18 sets, daily range): BP systolic 101–130; BP diastolic 50–65; O2SAT 92–100
[2019-03-27] MEDS: LEVALBUTEROL 1.25 MG/0.5 ML CONCENTRATE NEB NEB SCH ×4 (01:55→20:30)
[2019-03-27] MEDS: KETOROLAC 30 MG/ML VIAL (J1885) IV SCH ×4 (02:02→21:05)
[2019-03-27] MEDS: diphenhydrAMINE INJ 50MG/ML VIAL (J1200) IV PRN ×3 (02:26→23:33)
[2019-03-27 05:34] LABS: BASO % 0.2 % (0.0-1.0); EOS # 0.4 10^3/uL (0.0-0.5); EOS % 2.2 % (0.0-3.0); HEMATOCRIT 31.2 % (36.0-47.0); HEMOGLOBIN 9.7 g/dl (12.0-15.5); LYMPH # 1.9 10^3/uL (1.5-5.0); LYMPH % 10.4 % (24.0-44.0); MEAN CORPUSCULAR HEMOGLOBIN 30.1 pg (27.0-33.0); MEAN CORPUSCULAR HGB CONC 31.1 g/dl (32.0-36.5); MEAN CORPUSCULAR VOLUME 96.9 fl (80.0-96.0); MONO # 1.8 10^3/uL (0.0-0.8); MONO % 10.1 % (0.0-5.0); NEUTROPHILS # 13.7 10^3/uL (1.5-8.5); NEUTROPHILS % 76.4 % (36.0-66.0); PLATELET COUNT, AUTOMATED 202 10^3/uL (150-450); RED BLOOD COUNT 3.22 10^6/uL (4.00-5.40)
[2019-03-27 06:02] LABS: BLOOD UREA NITROGEN 18 MG/DL (7-18); CREATININE FOR GFR 0.95 MG/DL (0.55-1.30); GLOMERULAR FILTRATION RATE > 60.0 (>58); GLUCOSE, FASTING 126 MG/DL (70-100); SODIUM LEVEL 137 MEQ/L (136-145)
[2019-03-27 06:03] LABS: CALCIUM LEVEL 8.1 MG/DL (8.5-10.1); CARBON DIOXIDE LEVEL 30 MEQ/L (21-32); CHLORIDE LEVEL 102 MEQ/L (98-107); POTASSIUM SERUM 4.4 MEQ/L (3.5-5.1)
[2019-03-27] MEDS: PERCOCET 5MG/325MG TAB PO PRN ×4 (06:09→22:55)
--- NOTE | 2019-03-27 08:15 | REP ---
Chest x-ray: Two views. History: Status post right lower lobectomy. Comparison study: March 26, 2019. Findings: Two right chest tubes remain in place. A the previously noted small right apical pneumothorax is not seen today. Left lung remains clear. Epidural catheter is again seen. No new infiltrate. Pleural angles remain sharp. Electronically Signed by Baltazar Lr MD 03/27/2019 08:06 A
[2019-03-27] MEDS ORDERED: FUROSEMIDE 40 MG/4 ML VIAL (J1940) IV ONE (08:45)
--- NOTE | 2019-03-27 08:55 | IPN ---
DATE: 03/27/2019 This is now the fourth postoperative day for Ms. Sebastian. Her pain is now being very fairly well controlled with the epidural and with additional by mouth narcotic medications. Her vital signs show a T-max of 99.4 with a heart rate that ranges between 102 and 93 in a sinus rhythm, a respiratory rate of 18-20 without the use of accessory muscles, who is 93-94% saturated on 2 liters nasal cannula and whose blood pressure is ranging between 104/54 to 122/59. Her intake and output for the past 24 hours has been recorded as 1882 in and 2430 out for a negativity of 550 mL. She has put 295 mL out the chest tube and there is no air leak. Weight today is pending. On physical examination, her right lung shows inspiratory crackles and expiratory rhonchi. Percussion notes are full to the diaphragm. Cardiac exam is without murmurs, clicks, gallops or rubs. I cannot feel her PMI. S1 and S2 are normal. Abdomen is soft and nontender. Bowel sounds are positive. There is no hepatomegaly. No costovertebral angle (CVA) tenderness. hat I can feel through her obesity. Extremities show trace pretibial edema. No calf tenderness. No differential swelling of the upper extremities. Skin is warm, dry and perfused without cyanosis or mottling including that of the nail beds and knees. Neck is supple. There is no jugular venous distention. No subcutaneous emphysema. Trachea is midline. Mouth shows her mucous membranes to be pink and moist. Lips and commissures are without lesions. No thrush. Eyes show her pupils to be equal and reactive. Extraocular motor intact. Sclerae anicteric. Neurologic shows II through XII intact along with gross motor and gross sensation intact. Gait is also intact according to the nurses that she walked down with to x-ray. Her white count today is up to 18.0 from 15.8 yesterday. Hemoglobin and hematocrit are 9.7 and 31.2, slightly decreased from 10.4 and 33.2 yesterday. Platelet count is 202 and stable. Differential shows 76% neutrophils, 10% lymphocytes, 10% monocytes. There are no immature forms. No toxic granulations. Her electrolytes are normal with a BUN and creatinine of 18 and 0.95, essentially unchanged from yesterday with a glucose of 126 and a calcium of 8.1. There are no blood gases on her today. Her chest x-ray today shows her lung fully expanded to the chest wall. Chest tubes are in good place. I see no infiltrates. The lateral chest x-ray shows no posterior infiltrates. She has obligate volume loss from the lobectomy. IMPRESSION: 1. Postoperative day #4 status post right lower lobectomy. 2. Adenocarcinoma clinical stage I, final pathology still pending. 3. Gastroesophageal reflux disease. 4. Acute surgical blood loss, replaced. 5 Obesity. 6. Prior tobacco abuse. PLAN AND DISCUSSION: I will again diurese her today. She has put a little bit too much out the chest tubes to remove them. I will closely watch her white count. I see no overt signs of infections at this point in time.
[2019-03-27] MEDS: MOM 30ML SUSPENSION UDC PO SCH (09:33)
[2019-03-27] MEDS: DOCUSATE SODIUM 100 MG CAP PO SCH ×2 (09:33→21:05)
[2019-03-27] MEDS: HEPARIN SOD (PORCINE) 5000 UNITS/ML VIAL SC SCH ×2 (09:33→21:06)
[2019-03-27] MEDS: PANTOPRAZOLE 40MG TAB (PROTONIX) PO SCH (09:33)
[2019-03-27] MEDS: BUPIVACAINE/NACL BAG 250 ML EPIDURAL SCH (21:11)
[2019-03-28] VITALS (23 sets, daily range): BP systolic 104–125; BP diastolic 54–72; O2SAT 72–100
[2019-03-28] MEDS: LEVALBUTEROL 1.25 MG/0.5 ML CONCENTRATE NEB NEB SCH ×4 (01:18→20:05)
[2019-03-28] MEDS: KETOROLAC 30 MG/ML VIAL (J1885) IV SCH ×3 (03:02→14:13)
[2019-03-28] MEDS: PERCOCET 5MG/325MG TAB PO PRN ×3 (03:05→20:26)
[2019-03-28 05:58] LABS: BASO % 0.1 % (0.0-1.0); EOS # 0.4 10^3/uL (0.0-0.5); EOS % 2.4 % (0.0-3.0); HEMATOCRIT 29.1 % (36.0-47.0); HEMOGLOBIN 9.3 g/dl (12.0-15.5); LYMPH # 1.6 10^3/uL (1.5-5.0); LYMPH % 9.9 % (24.0-44.0); MEAN CORPUSCULAR HEMOGLOBIN 30.4 pg (27.0-33.0); MEAN CORPUSCULAR VOLUME 95.1 fl (80.0-96.0); MONO # 1.6 10^3/uL (0.0-0.8); MONO % 9.8 % (0.0-5.0); NEUTROPHILS # 12.4 10^3/uL (1.5-8.5); NEUTROPHILS % 76.7 % (36.0-66.0); PLATELET COUNT, AUTOMATED 221 10^3/uL (150-450); RED BLOOD COUNT 3.06 10^6/uL (4.00-5.40); WHITE BLOOD COUNT 16.2 10^3/uL (4.0-10.0)
[2019-03-28 06:19] LABS: BLOOD UREA NITROGEN 18 MG/DL (7-18); CALCIUM LEVEL 8.1 MG/DL (8.5-10.1); CARBON DIOXIDE LEVEL 30 MEQ/L (21-32); CHLORIDE LEVEL 101 MEQ/L (98-107); CREATININE FOR GFR 0.87 MG/DL (0.55-1.30); GLOMERULAR FILTRATION RATE > 60.0 (>58); GLUCOSE, FASTING 109 MG/DL (70-100); POTASSIUM SERUM 4.4 MEQ/L (3.5-5.1); SODIUM LEVEL 136 MEQ/L (136-145)
[2019-03-28] MEDS ORDERED: FUROSEMIDE 40 MG/4 ML VIAL (J1940) IV ONE (08:30)
[2019-03-28] MEDS: PANTOPRAZOLE 40MG TAB (PROTONIX) PO SCH (08:43)
[2019-03-28] MEDS: MOM 30ML SUSPENSION UDC PO SCH (08:43)
[2019-03-28] MEDS: DOCUSATE SODIUM 100 MG CAP PO SCH ×2 (08:44→20:26)
[2019-03-28] MEDS: HEPARIN SOD (PORCINE) 5000 UNITS/ML VIAL SC SCH ×2 (08:44→20:26)
--- NOTE | 2019-03-28 10:37 | IPN ---
DATE: 03/28/2019 This is now the fifth postoperative day for Mrs. Sebastian. Her pain is being well controlled with the epidural. Her vital signs show a maximum temperature (Tmax) of 98.5 with a heart rate that ranges between 103-99 in a sinus rhythm, respiratory rate of 18-20 without the use of accessory muscles, who is 97% saturated on 2 liters nasal cannula and whose blood pressure is ranging between 125/72-104/54. Her intake and output for the past 24 hours has been recorded as 1764 in and 1760 out for a near equality. She has put 235 mL out the chest tube and there is no air leak. Her weight today is 116 kg compared to 115.2 kg yesterday. On physical examination, she has coarse rales and rhonchi on the right side most of which clear with coughing. Percussion notes are full to the diaphragm. Cardiac exam is without murmurs, clicks, gallops or rubs. I cannot feel her point of maximum impulse (PMI). S1 and S2 are normal. Abdomen is soft and nontender. Bowel sounds are positive. Extremities show 1+ pretibial edema. No calf tenderness. No differential swelling of the upper extremities. Skin is warm, dry and perfused without cyanosis or mottling including that of the nail beds and knees. Neck is supple. There is no jugular venous distention. No subcutaneous emphysema. Trachea is midline. Mouth shows her mucous membranes to be pink and moist. Lips and commissures are without lesions. There is no thrush. Eyes show her pupils to be equal and reactive. Extraocular motor intact. Sclerae anicteric. Neuro shows II-XII intact along with gross motor and gross sensation intact. Gait is not tested. Psychiatric shows her to be awake and alert, oriented times three with appropriate mood and affect and conversational. Her white count today is down 16.2 with hemoglobin and hematocrit of 9.3 and 29.1, essentially unchanged from yesterday. Platelet count is 221 and differential shows 76% neutrophils, 9% lymphocytes and 9% monocytes. There are no immature forms. No toxic granulations. Her electrolytes are normal with a BUN and creatinine of 18 and 0.87, glucose of 109 and a calcium of 8.1. Her chest x-ray today shows her lung fully expanded to the chest wall. Costophrenic angles are sharp. There are no infiltrates. Lateral film there are no posterior infiltrates. Her chest tubes are in good place. I have gone over pathology with Dr. Vargas yesterday. All nodes are negative and the tumor measures 1.5 cm, which consists of two small nodules. All nodes are negative. This makes her a [id number] or stage I B. IMPRESSION: 1. Stage I B adenocarcinoma moderately differentiated right lower lobe. 2. Gastroesophageal reflux disease. 3. Postoperative day #5 status post right lower lobectomy. 4. Prior tobacco abuse. 5. Acute surgical blood loss, replaced. 6. Obesity. PLAN AND DISCUSSION: I will discontinue her chest tubes today, wean her epidural and continue her Bryant. We will give her oral pain medications during the wean. If all goes well, we will plan for discharge in the morning. Edited: 03/28/2019 Amy zimmerman
--- NOTE | 2019-03-28 11:07 | REP ---
CHEST X-RAY: Two views. HISTORY: Status post right lower lobectomy. COMPARISON STUDY: March 27, 2019. FINDINGS: There are two right chest tubes again noted. Epidural catheter is visible. There is an air-fluid level projecting in the right posterior paratracheal region of the mediastinum which is a little larger than on yesterday's radiograph. There is a small right apical pneumothorax visible. The left lung remains essentially clear. IMPRESSION: Small right apical pneumothorax. Right posterior paratracheal air fluid level. Two right chest tubes remain in place. Electronically Signed by Baltazar Lr MD 03/28/2019 03:33 P
[2019-03-28] MEDS ORDERED: diphenhydrAMINE 25 MG CAP PO PRN (23:00)
[2019-03-29] VITALS (14 sets, daily range): BP systolic 111–128; BP diastolic 58–69; O2SAT 92–100
[2019-03-29] MEDS: PERCOCET 5MG/325MG TAB PO PRN ×4 (01:15→14:43)
[2019-03-29] MEDS: LEVALBUTEROL 1.25 MG/0.5 ML CONCENTRATE NEB NEB SCH ×2 (01:55→07:17)
[2019-03-29 06:03] LABS: BASO % 0.3 % (0.0-1.0); EOS # 0.5 10^3/uL (0.0-0.5); EOS % 3.5 % (0.0-3.0); HEMATOCRIT 29.4 % (36.0-47.0); HEMOGLOBIN 9.3 g/dl (12.0-15.5); LYMPH % 15.4 % (24.0-44.0); MEAN CORPUSCULAR HEMOGLOBIN 30.3 pg (27.0-33.0); MEAN CORPUSCULAR HGB CONC 31.6 g/dl (32.0-36.5); MEAN CORPUSCULAR VOLUME 95.8 fl (80.0-96.0); MONO # 1.2 10^3/uL (0.0-0.8); MONO % 9.3 % (0.0-5.0); NEUTROPHILS # 9.1 10^3/uL (1.5-8.5); NEUTROPHILS % 69.9 % (36.0-66.0); PLATELET COUNT, AUTOMATED 244 10^3/uL (150-450); RED BLOOD COUNT 3.07 10^6/uL (4.00-5.40); WHITE BLOOD COUNT 13.1 10^3/uL (4.0-10.0)
[2019-03-29 06:27] LABS: BLOOD UREA NITROGEN 14 MG/DL (7-18); CALCIUM LEVEL 8.4 MG/DL (8.5-10.1); CARBON DIOXIDE LEVEL 31 MEQ/L (21-32); CHLORIDE LEVEL 102 MEQ/L (98-107); CREATININE FOR GFR 0.83 MG/DL (0.55-1.30); GLOMERULAR FILTRATION RATE > 60.0 (>58); GLUCOSE, FASTING 107 MG/DL (70-100); POTASSIUM SERUM 4.5 MEQ/L (3.5-5.1); SODIUM LEVEL 138 MEQ/L (136-145)
[2019-03-29] MEDS: MOM 30ML SUSPENSION UDC PO SCH (09:00)
[2019-03-29] MEDS: DOCUSATE SODIUM 100 MG CAP PO SCH (09:00)
[2019-03-29] MEDS ORDERED: FUROSEMIDE 40 MG/4 ML VIAL (J1940) IV ONE (09:00)
[2019-03-29] MEDS: HEPARIN SOD (PORCINE) 5000 UNITS/ML VIAL SC SCH (10:20)
[2019-03-29] MEDS: PANTOPRAZOLE 40MG TAB (PROTONIX) PO SCH (10:20)
[2019-03-29] MEDS ORDERED: LASI40TA9 PO (10:50)
[2019-03-29] MEDS ORDERED: PERCOCET PO (10:50)
--- NOTE | 2019-03-29 11:33 | REP ---
Two-view chest: 03/29/2019. Indication: Right lower lobectomy. Comparison: Yesterday. Findings: The right-sided chest tubes have been discontinued. Right-sided pleural effusion is slightly more prominent. Small right apical pneumothorax persists. The study is otherwise unchanged. Impression: Slightly more prominent right pleural effusion. Essentially stable right apical pneumothorax. Electronically Signed by Syed Amado DO 03/29/2019 11:25 A
--- NOTE | 2019-03-29 11:36 | DSES ---
DATE OF ADMISSION: 03/23/2019 DATE OF DISCHARGE: 03/29/2019 DISCHARGE DIAGNOSES: 1. Stage 1B adenocarcinoma, moderately differentiated, right lower lobe, [id number]. 2. Gastroesophageal reflux disease. 3. Postoperative day #6 status post right lower lobectomy. 4. Prior tobacco abuse. 5. Acute surgical blood loss, replaced. 6. Obesity. HOSPITAL COURSE: The patient is a 48-year-old white female who first noted a fatty lump over her sternum. She was referred for CT scan which showed this to be a lipoma, but also on coverage by happenstance a right lower lobe mass surrounding an area of emphysema. This was eventually biopsied and found to be moderately differentiated adenocarcinoma. She had no symptomatology. She has smoked up to 2 packs per day, but quit approximately 10 weeks prior to surgery. She had an occasional cough, but no sputum production and no fever, chills or sweats. No hemoptysis. No chest pain. Her skin showed the right lower lobe lesion to be hypermetabolic and her preoperative PFTs showed a FEV1 of 2.34 which is 88% of predicted with a diffusion capacity DLCO of 19.01 which was 86% of predicted. She was therefore taken to the operating room where she underwent a right lower lobectomy. During the lobectomy, the apical basilar segment mental artery tore at its junction with the main lower lobe pulmonary artery. This caused acute blood loss, but which was controlled with only minimal period of relative hypotension down to 85 systolic pressure. Her final pathology came back with all nodes negative and with the lesion measuring 1.5 cm in its greatest dimension. Her staging is therefore Stage IB. She had a gratifyingly very benign postoperative course with her chest tubes being removed on the fifth postoperative day. She had an air leak for one day. Her oxygen was weaned down to 2 liters, but on room air her room saturations were 85% with ambulation. She still had some pretibial edema. She is therefore being sent home on oxygen 2 liters nasal cannula and Lasix 40 mg daily. I will see her back in the office in 7-10 days with a chest x-ray. Her discharge medications in addition to the Lasix consist of Percocet 5/325 every 4-6 hours as needed pain along with her home medications of Biotin 5000 mg daily, Combivent 20-100 one puff twice a day, Loratadine 10 mg daily, and omeprazole 40 mg daily. She has also been instructed to drink a glass of orange juice or eat a banana each day for potassium replacement. Her discharge hemoglobin and hematocrit are 9.3 and 29.4 with a white count of 13.1. Her platelet count is 244. Discharge electrolytes are normal with a potassium of 4.5 and a BUN and creatinine of 14 and 0.83, a glucose of 107 and a calcium of 8.4. As she has Stage IB adenocarcinoma, with all nodes negative, she will not need adjuvant chemotherapy. edited: 03/30/2019 0717 suzanne BLUM
== END 2019-03-29 15:06 | disposition home or self-care (01) | DRG 121 ==
LOC: M OR 06:53 → M ICU 15:39 → M PCU 03-27 15:50
PROVIDERS: ADMIT Thoracic Surgery (Cardiothoracic Vascular Surgery); ATTEND Thoracic Surgery (Cardiothoracic Vascular Surgery)
PROC: 07B70ZX Excision of Thorax Lymphatic, Open Approach, Diagnostic (ICD-10-PCS; 2019-03-23)
PROC: 30233N1 Transfusion of Nonautologous Red Blood Cells into Peripheral Vein, Percutaneous Approach (ICD-10-PCS; 2019-03-23)
PROC: 0BBK0ZZ Excision of Right Lung, Open Approach (ICD-10-PCS; principal; 2019-03-23 08:30)
DX: C34.31 Malignant neoplasm of lower lobe, right bronchus or lung (principal); D62 Acute posthemorrhagic anemia; K21.9 Gastro-esophageal reflux disease without esophagitis; F41.9 Anxiety disorder, unspecified; M19.90 Unspecified osteoarthritis, unspecified site; E66.9 Obesity, unspecified; Z87.891 Personal history of nicotine dependence; J95.830 Postprocedural hemorrhage of a respiratory system organ or structure following a respiratory system procedure

== ENCOUNTER → 2019-04-10 | Outpatient (CLI) | payer OTHER ==
[~2019-04-10] MED LIST changes: +LASI40TA9 PO; -LR 1,000 ML IV ONE; -MUPIROCIN 2% OINT 22 GM TUBE TOP ONE; +PERCOCET PO; -VANCOMYCIN HCL 1,000 MG, VIAL MATE ADAPTER 1 EACH in D5W 250 ML IV ONE
--- NOTE | 2019-04-10 09:51 | REPPI ---
Clinical: Neoplasm. Technique: PA and lateral. Comparison: 03/29/2019. Findings: Moderate right pleural effusion with basilar atelectasis. Aerated lung eller are relatively clear. No pneumothorax. Mediastinum and cardiac silhouette are stable. Impression: Stable moderate right pleural effusion Electronically Signed by Otilio Dominguez MD 04/10/2019 09:43 A
== END ==
LOC: M PLAIMG 09:25
PROVIDERS: ATTEND Thoracic Surgery (Cardiothoracic Vascular Surgery)
DX: C34.31 Malignant neoplasm of lower lobe, right bronchus or lung (principal); J90 Pleural effusion, not elsewhere classified

== ENCOUNTER → 2019-04-17 | Outpatient (CLI) | payer OTHER ==
--- NOTE | 2019-04-17 14:45 | REP ---
CHEST, TWO VIEWS: Two views of the chest performed status post right thoracentesis. There is residual right pleural fluid and thickening with decreased amount of right pleural fluid compared to the prior study. There is no pneumothorax. Cardiomediastinal silhouette is unchanged. Left lung remains clear. IMPRESSION: No pneumothorax status post right thoracentesis. Electronically Signed by Nelson Alejo MD 04/17/2019 03:55 P
[2019-04-17 16:30] VITALS: BP 135/78
--- NOTE | 2019-04-17 17:14 | REP ---
ULTRASOUND-GUIDED RIGHT THORACENTESIS The procedure was performed under the direct supervision of Dr. Alejo. The risks and benefits of the procedure were explained to the patient and informed consent was obtained. The right pleural effusion was localized using ultrasound guidance. The skin was prepped and draped in a sterile fashion. 1% lidocaine was used as a local anesthetic. An 8-Yakut multi side-hole catheter was inserted using trocar technique. 820 ml of yellow fluid was withdrawn with a sample sent to the lab for analysis. The patient tolerated the procedure well and there were no immediate complications. After the appropriate amount of monitored convalescence the patient was discharged from the department. Electronically Signed by ABBIE Renteria 04/17/2019 04:52 P Electronically Signed by Nelson Alejo MD 04/17/2019 05:06 P
== END ==
LOC: M IRPRO 13:04
PROVIDERS: ATTEND Thoracic Surgery (Cardiothoracic Vascular Surgery)
DX: J90 Pleural effusion, not elsewhere classified (principal)

== ENCOUNTER → 2019-04-20 | Outpatient (CLI) | payer OTHER ==
[2019-04-20 12:27] LABS: PH BODY FLUID 7.531 UNITS (NOT ESTABLISHED); SOURCE, BODY FLUID pH PLEURAL
[2019-04-20 12:56] LABS: AMYLASE, BODY FLUID 48 U/L (NOT ESTABLISHED); LDH, BODY FLUID 343 U/L (NOT ESTABLISHED); SOURCE, BODY FLUID AMYLASE PLEURAL; SOURCE, BODY FLUID GLUCOSE PLEURAL; SOURCE, BODY FLUID LDH PLEURAL; SOURCE, BODY FLUID TOT PROTEIN PLEURAL; TOTAL PROTEIN, BODY FLUID 4.4 G/DL (NOT ESTABLISHED)
[2019-04-20 14:05] LABS: APPEARANCE, BODY FLUID CLEAR
== END ==
LOC: M LAB 12:36
PROVIDERS: ATTEND Thoracic Surgery (Cardiothoracic Vascular Surgery)
DX: J90 Pleural effusion, not elsewhere classified (principal)

== ENCOUNTER → 2019-05-01 | Outpatient (CLI) | payer OTHER ==
--- NOTE | 2019-05-01 09:05 | REPPI ---
Clinical: Post surgical evaluation. Technique: PA and lateral. Comparison: 04/17/2019. Findings: Small/moderate right pleural effusion again noted. Aerated lung eller are relatively clear. Surgical clips at the right hilum noted. No pneumothorax. Cardiac silhouette is normal/stable. Skeletal structures are intact. Impression: Stable right pleural effusion. Electronically Signed by Otilio Dominguez MD 05/01/2019 08:56 A
== END ==
LOC: M PLAIMG 08:34
PROVIDERS: ATTEND Thoracic Surgery (Cardiothoracic Vascular Surgery)
DX: J90 Pleural effusion, not elsewhere classified (principal); Z48.3 Aftercare following surgery for neoplasm

== ENCOUNTER → 2019-06-05 | Outpatient (CLI) | payer OTHER ==
--- NOTE | 2019-06-05 19:03 | REPPI ---
PA and lateral chest: Comparison is 05/01/2019. The patient has a right lower lobectomy. There are surgical clips in the right hilus. This is unchanged. There is a persisting right pleural effusion, unchanged. The remainder of the right lung is clear. Left lung is clear. Cardiac size is normal. The ami, mediastinum, skeletal structures are. Impression: Persistent right pleural effusion. The right lower lobectomy. Electronically Signed by Nelson Romero MD 06/05/2019 06:56 P
== END ==
LOC: M PLALAB 09:10
PROVIDERS: ATTEND Thoracic Surgery (Cardiothoracic Vascular Surgery)
DX: C34.31 Malignant neoplasm of lower lobe, right bronchus or lung (principal); Z48.3 Aftercare following surgery for neoplasm; J90 Pleural effusion, not elsewhere classified; Z90.2 Acquired absence of lung [part of]

== ENCOUNTER → 2019-06-30 | Outpatient (CLI) | payer OTHER ==
--- NOTE | 2019-06-30 11:21 | REP ---
Clinical: Lung screening. History smoking. Comparison: 01/26/2019 Technique: Axial low-dose noncontrast images from the thoracic inlet to the upper abdomen using lung screening technique. Findings: The lung eller are well-aerated and the patient is noted to be status post right lower lobectomy with postsurgical changes at the hilum and small right effusion. No consolidation, significant nodule or mass lesion is appreciated. Tracheobronchial tree is patent. Mediastinum demonstrates mild atherosclerotic changes of the coronary arteries without cardiomegaly. Impression: Lung-RADS category I-S. Postsurgical changes involving the right hemithorax related to prior right lower lobectomy. No nodule or suspicious abnormality. Electronically Signed by Otilio Dominguez MD 06/30/2019 11:12 A
--- NOTE | 2019-07-02 07:21 | ECHO ---
DATE OF SERVICE: 06/30/2019 REFERRING PROVIDER: Dr. Adriel Rojas PATIENT LOCATION: Outpatient REASON FOR THE STUDY: Pleural effusion. 2D MEASUREMENTS: IVS 1.1 cm LV: 4.3 cm LVPW: 1.1 cm LA: 3.1 cm Aorta 3.0 cm IVC 1.5 cm DOPPLER MEASUREMENTS: Peak velocity across the aortic valve: 1.5 m/s Peak velocity across the LVOT: 1.3 m/s Peak gradient across the aortic valve 9 mmHg Mean gradient across the aortic valve 5 mmHg Mitral E: 0.97 Mitral A: 1.1 with a ratio of 0.9 2D COMMENTS: 1. Normal left ventricular size, wall thickness, and normal global left ventricular systolic function. The estimated left ventricular systolic ejection fraction is 60-65%. 2. Normal left atrium. Normal right atrium and right ventricle. 3. The atrial septum appeared to be normal without evidence of defect or shunt. 4. Normal aortic root. 5. Trace pericardial effusion noted, no evidence of cardiac tamponade. Right pleural effusion also noted. 6. The aortic valve, mitral valve, tricuspid valve appeared to be normal. The pulmonic valve was not well visualized as well as the proximal pulmonary artery branches. 7. The inferior vena cava was normal in size, central venous pressure is most likely normal. Doppler, it detects trace mitral regurgitation. IMPRESSION: 1. Normal global left ventricular systolic function. There is some features of grade 1 left ventricular diastolic dysfunction manifested by abnormal relaxation. 2. Trace pericardial effusion, no evidence of cardiac tamponade. 3. Right pleural effusion was noted. 4. The gradient across the aortic valve was minimally elevated at 9 mmHg with a peak velocity of 1.5 m/s. No aortic regurgitation detected.
== END ==
LOC: M CARPUL 10:04
PROVIDERS: ATTEND Thoracic Surgery (Cardiothoracic Vascular Surgery)
DX: J90 Pleural effusion, not elsewhere classified (principal); Z90.2 Acquired absence of lung [part of]; I25.10 Atherosclerotic heart disease of native coronary artery without angina pectoris

== ENCOUNTER → 2020-02-29 | Outpatient (CLI) | payer OTHER ==
--- NOTE | 2020-02-29 10:06 | REPPI ---
INDICATION: C34.31 MALIGNANT NEOPLASM OF LOWER LOBE COMPARISON: 06/05/2019 TECHNIQUE: PA and lateral. FINDINGS: Small right pleural effusion and passive atelectasis. Postsurgical changes at the right hilum noted. Aerated lung eller are otherwise clear. Cardiac silhouette is normal. IMPRESSION: Small right pleural effusion and right-sided postsurgical changes. <Electronically signed by Otilio Dominguez > 02/29/20 1002
== END ==
LOC: M PLAIMG 08:59
PROVIDERS: ATTEND Thoracic Surgery (Cardiothoracic Vascular Surgery)
DX: C34.31 Malignant neoplasm of lower lobe, right bronchus or lung (principal); J90 Pleural effusion, not elsewhere classified; J98.11 Atelectasis; Z48.3 Aftercare following surgery for neoplasm

== ENCOUNTER → 2020-06-20 | Outpatient (CLI) | payer OTHER ==
[2020-06-20 15:32] LABS: BASO % 0.3 % (0.0-1.0); EOS # 0.2 10^3/uL (0.0-0.5); EOS % 2.1 % (0.0-3.0); HEMATOCRIT 43.1 % (36.0-47.0); HEMOGLOBIN 13.9 g/dl (12.0-15.5); LYMPH % 20.4 % (24.0-44.0); MEAN CORPUSCULAR HEMOGLOBIN 28.7 pg (27.0-33.0); MEAN CORPUSCULAR HGB CONC 32.3 g/dl (32.0-36.5); MONO # 0.9 10^3/uL (0.0-0.8); MONO % 8.9 % (0.0-5.0); NEUTROPHILS # 6.6 10^3/uL (1.5-8.5); NEUTROPHILS % 67.9 % (36.0-66.0); PLATELET COUNT, AUTOMATED 251 10^3/uL (150-450); RED BLOOD COUNT 4.84 10^6/uL (4.00-5.40); WHITE BLOOD COUNT 9.7 10^3/uL (4.0-10.0)
[2020-06-20 15:46] LABS: HEMOGLOBIN A1c 5.4 %
[2020-06-20 16:07] LABS: ERYTHROCYTE SEDIMENTATION RATE 4 mm/hr (0-30)
[2020-06-20 16:10] LABS: ALBUMIN 4.2 GM/DL (3.2-5.2); ALT/SGPT 40 U/L (12-78); BILIRUBIN,TOTAL 0.4 MG/DL (0.2-1.0); BLOOD UREA NITROGEN 12 MG/DL (7-18); CALCIUM LEVEL 9.4 MG/DL (8.5-10.1); CARBON DIOXIDE LEVEL 31 MEQ/L (21-32); CHLORIDE LEVEL 102 MEQ/L (98-107); CREATININE FOR GFR 1.05 MG/DL (0.55-1.30); GLOMERULAR FILTRATION RATE 59.1 (>51); GLUCOSE, FASTING 82 MG/DL (70-100); POTASSIUM SERUM 4.4 MEQ/L (3.5-5.1); RHEUMATOID FACTOR QUANT < 10.0 IU/ML (<15.0); SODIUM LEVEL 140 MEQ/L (136-145); TOTAL PROTEIN 7.6 GM/DL (6.4-8.2)
[2020-06-20 16:12] LABS: TOTAL 25(OH) VITAMIN D 31.6 NG/ML (30.0-100.0); VITAMIN B12 LEVEL 380 PG/ML (247-911)
[2020-06-20 16:13] LABS: FOLATE 15.1 NG/ML (>5.4)
[2020-06-25 12:44] LABS: ALBUMIN % 60.1 % (55.8-66.1); ALPHA-1-GLOBULIN % 4.5 % (2.9-4.9); ALPHA-2-GLOBULINS % 10.7 % (7.1-11.8); BETA-1-GLOBULINS % 5.3 % (4.7-7.2); BETA-2-GLOBULINS % 6.3 % (3.2-6.5); GAMMA GLOBULIN % 13.1 % (11.1-18.8)
[2020-06-25 12:45] LABS: ALBUMIN 4.57 GM/DL (3.29-5.55); ALPHA-1-GLOBULINS 0.34 GM/DL (0.17-0.41); ALPHA-2-GLOBULINS 0.81 GM/DL (0.42-0.99); BETA-2-GLOBULINS 0.48 GM/DL (0.19-0.55)
== END ==
LOC: M PLALAB 13:40
PROVIDERS: ATTEND Psychiatry & Neurology Neurology
DX: R51.9 Headache, unspecified (principal); G62.9 Polyneuropathy, unspecified

== ENCOUNTER → 2020-07-10 | Outpatient (CLI) | payer OTHER ==
--- NOTE | 2020-07-10 14:39 | REP ---
INDICATION: DYSNEA UNSPECIFIED COMPARISON: 06/30/2019 TECHNIQUE: Axial noncontrast images from the thoracic inlet to the upper abdomen with coronal and sagittal reformations. This CT examination was performed using the following dose reduction techniques: Automated exposure control, adjustment of mA and/or kv according to the patient's size, and use of iterative reconstruction technique. FINDINGS: Postsurgical changes involving the right hemithorax consistent with prior right lower lobectomy again noted and similar to prior examination. Small residual right pleural reaction is decreased from prior examination. Left hemithorax is well aerated and clear. No acute consolidation, suspicious nodule or mass lesion. Tracheobronchial tree is relatively patent. No obvious adenopathy. Mediastinum demonstrates stable appearance to the thoracic aorta, pulmonary vasculature, and heart/pericardium. Surrounding musculoskeletal structures intact and without acute osseous abnormality. Limited upper abdomen again demonstrates stable right adrenal adenomas and evidence for prior cholecystectomy. IMPRESSION: Postsurgical changes involving the right hemithorax. No acute mediastinal or pleuroparenchymal process appreciated. <Electronically signed by Otilio Dominguez > 07/10/20 [id number]
== END ==
LOC: M RAD 14:13
PROVIDERS: ATTEND Internal Medicine Pulmonary Disease
DX: D35.00 Benign neoplasm of unspecified adrenal gland (principal); Z90.49 Acquired absence of other specified parts of digestive tract; R06.00 Dyspnea, unspecified

== ENCOUNTER → 2020-08-19 | Outpatient (CLI) | payer OTHER ==
--- NOTE | 2020-08-20 16:47 | SLEEPHOME ---
DATE: 08/19/2020 ORDERED BY: Dr. Haji Diagnostic home sleep testing was performed due to concern for the obstructive sleep apnea syndrome. For testing, a nocturnal T3 respiratory monitoring device was used. Continuous record was made of pulse, oxygen saturation, air flow, chest and abdominal strain, and body position. There was 9 hours and 59 minutes of data reviewed. There was 7 hours and 21 minutes marked as time in bed. During the interval marked time in bed, there were 137 respiratory events identified of 10 seconds in duration or greater for a respiratory event index of 18.6. The events were primarily obstructive. Baseline pulse rate 86. Pulse rate ranged 67-107. Baseline saturation was 88%. Saturations fell to 51%. Testing was performed in both the supine and nonsupine positions. IMPRESSION: Abnormal home sleep testing with repetitive respiratory events and oxygen desaturations to 51% with a respiratory event index of 18.6 is consistent with the obstructive sleep apnea syndrome. RECOMMENDATION: The patient should be encouraged to undergo formal sleep evaluation.
== END ==
LOC: M SLEEP HO 13:54
PROVIDERS: ATTEND Internal Medicine Pulmonary Disease
DX: R06.83 Snoring (principal)

== ENCOUNTER → 2020-09-24 | Outpatient (CLI) | payer OTHER ==
--- NOTE | 2020-09-25 13:55 | SLEEPCENT ---
DIAGNOSTIC NOCTURNAL POLYSOMNOGRAPHY DATE: 09/24/2020 ORDERED BY: Eron Haji D.O. Nocturnal polysomnography was performed for the titration of pressure therapy in this patient with a clinical diagnosis obstructive sleep apnea syndrome, supported by home testing revealing a respiratory event index of 18.6. For testing a ResMed AirFit F20 full face mask of medium size was used, 4 cm of water pressure were applied to the circuit, and the lights were extinguished. 7 hours and 36 minutes of data were reviewed. There were 345 minutes of sleep identified. Sleep latency was mildly prolonged at 35.5 minutes. REM latency likewise mildly prolonged at 136 minutes. Sleep architecture improved with optimal pressure therapy and there were three REM cycles noted. Overall sleep efficiency was 76.7%. The electrocardiogram showed a sinus rhythm with an average heart rate of 78 beats per minute. EEG showed reasonably normal waveforms for wake and sleep. Respiratory events were fully palliated with CPAP at a pressure of 7 and remaining measures of sleep physiology were normal. IMPRESSION: Obstructive sleep apnea syndrome (G47.33). RECOMMENDATION: Nightly use of pressure therapy 7 cm of water. Salvador Crawford D.O.
== END ==
LOC: M SLEEP 20:00
PROVIDERS: ATTEND Physician Assistant
DX: G47.33 Obstructive sleep apnea (adult) (pediatric) (principal)

== ENCOUNTER → 2021-02-20 | Outpatient (CLI) | payer OTHER ==
[~2021-02-20] MED LIST changes: +OMEP40CA4 PO; -OMEP40CA97 PO
--- NOTE | 2021-02-20 13:35 | REP ---
INDICATION: MALIGNANT NEOPLASM RT LUNG COMPARISON: Prior examinations dating through 06/30/2019 TECHNIQUE: Axial noncontrast images from the thoracic inlet to the upper abdomen with coronal and sagittal reformations. This CT examination was performed using the following dose reduction techniques: Automated exposure control, adjustment of mA and/or kv according to the patient's size, and use of iterative reconstruction technique. FINDINGS: Patient appears to be status post right lower lobectomy with postsurgical changes and volume loss. There is no evidence for recurrence or adenopathy. The left hemithorax is clear. The mediastinum demonstrates stable atherosclerotic changes to the thoracic aorta and coronary arteries without aortic aneurysm or cardiomegaly. No pericardial effusion. Tracheobronchial tree is patent. Musculoskeletal structures are intact and normal. IMPRESSION: Stable postoperative changes involving the right hemithorax. No acute mediastinal or pleuroparenchymal process. No evidence for recurrence or metastatic disease. <Electronically signed by Otilio Dominguez > 02/20/21 1398
== END ==
LOC: M PLAIMG 12:51
PROVIDERS: ATTEND Internal Medicine Pulmonary Disease
DX: C34.31 Malignant neoplasm of lower lobe, right bronchus or lung (principal); I70.0 Atherosclerosis of aorta; Z90.2 Acquired absence of lung [part of]; I25.10 Atherosclerotic heart disease of native coronary artery without angina pectoris

== ENCOUNTER → 2022-03-11 | Outpatient (CLI) | payer OTHER ==
[~2022-03-11] MED LIST changes: -PHEN15CA PO; +PHEN15CA6 PO
== END ==
LOC: M RAD 16:03
PROVIDERS: ATTEND Internal Medicine Pulmonary Disease
DX: C34.31 Malignant neoplasm of lower lobe, right bronchus or lung (principal); Z90.2 Acquired absence of lung [part of]; Z90.49 Acquired absence of other specified parts of digestive tract; I70.0 Atherosclerosis of aorta; J98.4 Other disorders of lung

== ENCOUNTER → 2023-04-26 | Outpatient (CLI) | payer OTHER | LOC: M PLAIMG 13:42 | PROVIDERS: ATTEND Internal Medicine Pulmonary Disease | DX: C34.31 Malignant neoplasm of lower lobe, right bronchus or lung (principal); D35.01 Benign neoplasm of right adrenal gland; D35.02 Benign neoplasm of left adrenal gland; Z90.49 Acquired absence of other specified parts of digestive tract ==

== ENCOUNTER → 2023-09-27 | Outpatient (CLI) | payer OTHER | LOC: M RAD 16:41 | PROVIDERS: ATTEND Internal Medicine Pulmonary Disease | DX: R91.8 Other nonspecific abnormal finding of lung field (principal) ==

== ENCOUNTER → 2024-04-11 | Outpatient (CLI) | payer OTHER | LOC: M RAD 13:33 | PROVIDERS: ATTEND Internal Medicine Pulmonary Disease | DX: R91.8 Other nonspecific abnormal finding of lung field (principal); I70.0 Atherosclerosis of aorta; D35.01 Benign neoplasm of right adrenal gland; D35.02 Benign neoplasm of left adrenal gland ==

== ENCOUNTER → 2024-11-22 | Outpatient (CLI) | payer OTHER ==
[~2024-11-22] MED LIST changes: +LORA-1164 PO; -LORA-622 PO
== END ==
LOC: M RAD 15:34
PROVIDERS: ATTEND Internal Medicine Pulmonary Disease
DX: C34.31 Malignant neoplasm of lower lobe, right bronchus or lung (principal); I25.10 Atherosclerotic heart disease of native coronary artery without angina pectoris